=== PATIENT | female | born 1940 | race Caucasian/White ===

== ENCOUNTER 2017-01-11 23:16 | Emergency (ER) | payer BC, OTHER ==
[~2017-01-11 23:16] MED LIST: ASAB PO; CRESTOR10 PO; PT DENIES; VICODINTAB PO
== END 2017-01-11 23:31 | disposition home or self-care (01) ==
LOC: ER 23:16
PROC: 2W3QXYZ Immobilization of Right Lower Leg using Other Device (ICD-10-PCS; principal; 2017-01-11)
DX: M25.571 Pain in right ankle and joints of right foot (principal); J44.9 Chronic obstructive pulmonary disease, unspecified; Z95.5 Presence of coronary angioplasty implant and graft; Z79.82 Long term (current) use of aspirin; Z79.899 Other long term (current) drug therapy
CPT/HCPCS: 73610-RT; 99284